=== PATIENT | male | born 1945 | race Caucasian/White ===

== ENCOUNTER 2018-10-04 09:14 | Outpatient (CLI) | payer MEDICARE, SELFPAY ==
--- NOTE | 2018-10-04 06:00 | DI.RAD_ITS ---
SYMPTOMS/DIAGNOSIS: OSTEOARTHRITIS OF RT KNEE, RT GENICULAR NERVE BLOCK C-ARM FLUOROSCOPY: Fluoroscopy Time: 40.8 seconds 1.87 mGy Fluoroscopy was provided for guidance with performing a knee injection. Please see procedure note for details.
[2018-10-04 09:24] VITALS: BP 111/71; PULSE 80; RESP 20; TEMP 37.2; O2SAT 96
[2018-10-04 09:59] VITALS: PULSE 73; O2SAT 96
--- NOTE | 2018-10-04 10:03 | PDOC.PAIN ---
Pain Clinic Procedure Note Current Active Problems Problem Status Onset Osteoarthritis, knee Acute { RIGHT GENICULAR NERVE BLOCKs Date of Service: 10/04/2018 Patient: Goyo Holbrook Provider: Danish Nascimento DO, MPH COMMENTS: Pre-procedure VAS to the RIGHT knee is 8/10. Mr. Holbrook has [facility] RIGHT genicular nerve block. Mr. Holbrook was interviewed and the medical record reviewed. There were no medical, pharmacologic, radiographic or other structural contraindications to attempting fluoroscopically guided RIGHT genicular nerve block. Risks and potential side effects as well as potential benefit of the procedure were reviewed with Mr. Holbrook, and HIS voiced concerns were addressed. After I believed that the patient was completely informed, the printed consent form was signed. Standard time-out procedure was performed. Mr. Holbrook was placed in the supine position on the fluoroscopy table and automated blood pressure cuff and pulse oximeter applied. The skin entry points for approaching RIGHT superolateral genicular nerve, the superomedial genicular nerve and the inferomedial genicular was identified under the most advantageous fluoroscopic view and marked. Following thorough Chlorhexadine preparation of the skin and draping, 1% lidocaine infiltration of the skin entry point and subcutaneous tissues was accomplished using a 1.5 25G needle. Next, the 3.5 25G spinal needle was advanced to os at the location of the specific nerve root using fluoroscopic guidance. Next, 1 cc of 0.5% Bupivacaine was injected at each site. The needles were removed without difficulty. Mr. Holbrook's vital signs were stable throughout the procedure and were as recorded in the docflowsheet by the nursing staff. If given, dosages of intravenous drugs for anxiolysis and analgesia were documented in SEP. Follow up plans and appointments were discussed with Mr. Holbrook. Post procedure instruction was given as documented in nursing documentation and having met discharge criteria, [facility] was [facility]. COMMENTS: No complications. Post-procedure VAS to the RIGHT knee is 0/10. The patient will keep track of her RIGHT knee pain over the next four hours. If he has sufficient pain relief, he will be a candidate for radiofrequency ablation at the same nerves. Mark WJ1, Cristian SJ, Kt WatermanG, Yvonne WatermanG, Lucas CLAROS, Gemini PH, Sarath JW. Radiofrequency treatment relieves chronic knee osteoarthritis pain: a double-blind randomized controlled trial. Pain. 2010;152(3):481-7. doi: 10.1016/j.pain.2010.09.029. Katie S1, Jos ON2, Zeenat Y3, ?zl?maddy P2, Viktor U1, Benjie ?m?rl? I. Which one is more effective for the clinical treatment of chronic pain in knee osteoarthritis: radiofrequency neurotomy of the genicular nerves or intra-articular injection? Int J Rheum Dis. 2016 Mar 13. F/U with with our office by phone with the 1-4 hour post-procedure pain levels. I personally performed this entire procedure. Danish Nascimento DO, MPH Attending Physician CC: [email or web address]@ @[email or web address]@
--- NOTE | 2018-10-04 10:06 | PDOC.PAIN_ITS ---
Pain Clinic Procedure Note Current Active Problems Problem Status Onset Osteoarthritis, knee Acute { RIGHT GENICULAR NERVE BLOCKs Date of Service: 10/04/2018 Patient: Goyo Holbrook Provider: Danish Nascimento DO, MPH COMMENTS: Pre-procedure VAS to the RIGHT knee is 8/10. Mr. Holbrook has [facility] RIGHT genicular nerve block. Mr. Holbrook was interviewed and the medical record reviewed. There were no medical, pharmacologic, radiographic or other structural contraindications to attempting fluoroscopically guided RIGHT genicular nerve block. Risks and potential side effects as well as potential benefit of the procedure were reviewed with Mr. Holbrook, and HIS voiced concerns were addressed. After I believed that the patient was completely informed, the printed consent form was signed. Standard time-out procedure was performed. Mr. Holbrook was placed in the supine position on the fluoroscopy table and automated blood pressure cuff and pulse oximeter applied. The skin entry points for approaching RIGHT superolateral genicular nerve, the superomedial genicular nerve and the inferomedial genicular was identified under the most advantageous fluoroscopic view and marked. Following thorough Chlorhexadine preparation of the skin and draping, 1% lidocaine infiltration of the skin entry point and subcutaneous tissues was accomplished using a 1.5 25G needle. Next, the 3.5 25G spinal needle was advanced to os at the location of the specific nerve root using fluoroscopic guidance. Next, 1 cc of 0.5% Bupivacaine was injected at each site. The needles were removed without difficulty. Mr. Holbrook's vital signs were stable throughout the procedure and were as recorded in the docflowsheet by the nursing staff. If given, dosages of intravenous drugs for anxiolysis and analgesia were documented in SEP. Follow up plans and appointments were discussed with Mr. Holbrook. Post procedure instruction was given as documented in nursing documentation and having met discharge criteria, [facility] was [facility]. COMMENTS: No complications. Post-procedure VAS to the RIGHT knee is 0/10. The patient will keep track of her RIGHT knee pain over the next four hours. If he has sufficient pain relief, he will be a candidate for radiofrequency ablation at the same nerves. Mark WJ1, Cristian SJ, Kt WatermanG, Yvonne WatermanG, Lucas CLAROS, Gemini PH, Sarath JW. Radiofrequency treatment relieves chronic knee osteoarthritis pain: a double-blind randomized c ontrolled trial. Pain. 2010;152(3):481-7. doi: 10.1016/j.pain.2010.09.029. Katie S1, Jos ON2, Zeenat Y3, ?zl?maddy P2, Viktor U1, Benjie ?m?rl? I. Which one is more effective for the clinical treatment of chronic pain in knee osteoarthritis: radiofrequency neurotomy of the genicular nerves or intra- articular injection? Int J Rheum Dis. 2016 Mar 13. F/U with with our office by phone with the 1-4 hour post-procedure pain levels. I personally performed this entire procedure. Danish Nascimento DO, MPH Attending Physician CC: [email or web address]@ @[email or web address]@
[2018-10-04] MEDS: Omnipaque 240 MG/ML 50 ML BTL IJ (10:12)
[2018-10-04] MEDS: Bupivacaine 0.5% Pres-Free 10 ML VIAL IJ (10:13)
== END 2018-10-04 09:34 ==
PROVIDERS: PCP Nurse Practitioner; Visit Provider Preventive Medicine Occupational Medicine
DX: M17.11 Unilateral primary osteoarthritis, right knee (principal); M25.561 Pain in right knee
CPT/HCPCS: 64450 ×3; 77002; Q9967

== ENCOUNTER 2018-10-25 09:37 | Outpatient (CLI) | payer MEDICARE, SELFPAY ==
[2018-10-25 09:54] VITALS: BP 126/69; PULSE 73; RESP 20; TEMP 36.6; O2SAT 97
[2018-10-25] MEDS: Midazolam 2 MG/2 ML VIAL IVP (10:50)
[2018-10-25] MEDS: fentaNYL 100 MCG/2 ML VIAL IVP (10:50)
[2018-10-25] MEDS: Lactated Ringers 1,000 ML 80 ML IV (10:51)
[2018-10-25 11:19] VITALS: BP 129/97; PULSE 66; RESP 18; O2SAT 100
--- NOTE | 2018-10-25 11:24 | DI.RAD_ITS ---
SYMPTOMS/DIAGNOSIS: RT KNEE OSTEOARTHRITIS, RIGHT GENICULAR RFA C-ARM FLUOROSCOPY: Fluoroscopy Time: 45.1s C-arm fluoroscopy was utilized by Dr. Nascimento. Hardcopies show total knee joint replacement in position with needle placement overlying the distal femur and proximal tibia.
[2018-10-25] MEDS: methylPREDNISolone ACETATE 40 MG/ML VIAL IM (12:26)
[2018-10-25] MEDS: Bupivacaine 0.5% Pres-Free 10 ML VIAL IJ (12:26)
[2018-10-25] MEDS: Lidocaine 2% Pres-Free 5 ML VIAL IJ (12:27)
--- NOTE | 2018-12-27 12:21 | PDOC.PAIN_ITS ---
Pain Clinic Procedure Note RIGHT GENICULAR NERVE RADIOFREQUENCY ABLATION Date of Service: 10/25/18 Patient: Goyo Holbrook Provider: Danish Nascimento DO, MPH COMMENTS: Previous Genicular nerve block to the RIGHT knee. DX: Knee osteoarthritis Mr. Holbrook has been referred [facility] for RIGHT genicular nerve radiofrequency ablation. Mr. Holbrook was interviewed and the medical record reviewed. There were no medical, pharmacologic, radiographic or other structural contraindications to attempting fluoroscopically guided RIGHT genicular nerve radiofrequency ablation. Risks and potential side effects as well as potential benefit of the procedure were reviewed with Mr. Holbrook, and HIS voiced concerns were addressed. After I believed that the patient was completely informed, the printed consent form was signed. Standard time-out procedure was performed. Mr. Holbrook was placed in the supine position on the fluoroscopy table and automated blood pressure cuff and pulse oximeter applied. The skin entry points for approaching RIGHT superolateral genicular nerve, the superomedial genicular nerve, the superior, and the inferomedial genicular was identified under the most advantageous fluoroscopic view and marked. Following thorough Chlorhexadine preparation of the skin and draping, 1% lidocaine infiltration of the skin entry point and subcutaneous tissues was accomplished using a 1.5 25G needle. Next, the 10 cm 18G RF Cannula with a 10 mm active tip was advanced to os at the location of the specific nerve roots (3) using fluoroscopic guidance. Next, sensory and motor testing was performed and no abnormal findings were found. Next, 1 cc of 2% Lidocaine was injected at each site. The lesion was then created with 80 degrees C for 90 seconds. Each needle was advance 1 cm and the lesion was completed again. Each cannula was advanced until the tip reached the posterior aspect of the bone shaft. 1/3 cc of Depomedrol (40 mg/cc) was then injected at each site followed by 2 cc of 0.5% Bupivacaine as the needle was withdrawn. The needles were removed without difficulty. Mr. Holbrook's vital signs were stable throughout the procedure and were as recorded in the docflowsheet by the nursing staff. If given, dosages of intravenous drugs for anxiolysis and analgesia were documented in MAR. Follow up plans and appointments were discussed with the Mr. Holbrook. Post procedure instruction was given as documented in nursing documentation and having met discharge criteria, he was [facility] from the [facility]. COMMENTS: No complications. Cristian Choudhury SJ, Kt JG, Yvonne JG, Zavala CLAROS, Park PH, Clemens JW. Radiofrequency treatment relieves chronic knee osteoarthritis pain: a double-blind randomized controlled trial. Pain. 2010;152(3):481-7. doi: 10.1016/j.pain.2010.09.029. Katie S1, Jos ON2, Zeenat Y3, ?zl?maddy P2, Viktor U1, Benjie ?m?rl? I. Which one is more effective for the clinical treatment of chronic pain in knee osteoarthritis: radiofrequency neurotomy of the genicular nerves or intra- articular injection? Int J Rheum Dis. 2016 Mar 12. F/U with our office as needed. I personally performed this entire procedure. Danish Nascimento DO, MPH Attending Physician
== END 2018-10-25 09:57 ==
PROVIDERS: PCP Nurse Practitioner; Visit Provider Preventive Medicine Occupational Medicine
DX: M17.11 Unilateral primary osteoarthritis, right knee (principal)
CPT/HCPCS: 64640 ×3; 77002; J1030; J2250; J3010